=== PATIENT | female | born 1975 | race Caucasian/White ===

== ENCOUNTER 2017-02-11 09:16 | Day surgery (SDC) | payer OTHER ==
--- NOTE | ~2017-02-11 | EGD ---
EGD REPORT [facility] [address] [place] [address] NAME: TAWNYA HINKLE : [birth year] STATUS : REG [facility]#: [id number] AGE: 41 ADM/REG DATE : 02/11/17 MR#: [id number] REPORT SERV DATE: 02/11/17 DICTATED BY: SEN MACHADO DATE: 02/11/17 REPORT STATUS : Draft [facility]ANS[facility]IBED [facility]: [facility] DATE: 02/11/17 Endoscopy Center Patient Name: Tawnya Hinkle Date of : 1975 Attending MD: SEN MACHADO, Procedure Date No Time: 02/11/2017 Procedure: Upper EUS Indications: Abnormal ultrasound of the abdomen. Dilated bile duct Referring MD: TAYLOR MEYER MD, CHRISTIANO MURPHY Medicines: Monitored Anesthesia Care Complications: No immediate complications. Estimated blood loss: None. Procedure: Pre-Anesthesia Assessment: - ASA Grade Assessment: I - A normal, healthy patient. After obtaining informed consent, the endoscope was passed under direct vision. Throughout the procedure, the patient's blood pressure, pulse, and oxygen saturations were monitored continuously. The Endoscope was introduced through the mouth, and advanced to the second part of duodenum. The GIF [id number] was introduced through the mouth, and advanced to the second part of duodenum. Findings: Endoscopic Finding : The examined esophagus was endoscopically normal. The entire examined stomach was endoscopically normal. The examined duodenum was endoscopically normal. The cardia and gastric fundus were normal on retroflexion. The ampulla was normal. Endosonographic Finding : There was dilation in the common bile duct which measured up to 7 mm. Endosonographic imaging of the visualized portion of the biliary system showed no stones, no sludge, no mass, no polyp and no stricture. There was no sign of significant endosonographic abnormality in the entire pancreas. The pancreas was well visualized, no pathologic lymphadenopathy, no masses, no calcifications, the pancreatic duct was well visualized from ampulla to tail, the pancreatic duct was regular in contour. There was no sign of significant endosonographic abnormality in the ampulla. No lymphadenopathy seen. There was no sign of significant endosonographic abnormality in the examined duodenum. Endosonographic images of the stomach were unremarkable. There was no sign of significant endosonographic abnormality in the EGD REPORT [place] [id number] [facility] [place]. [address] NAME: TAWNYA HINKLE : [birth year] STATUS : REG [facility]#: [id number] AGE: 41 ADM/REG DATE : 02/11/17 MR#: [id number] REPORT SERV DATE: 02/11/17 DICTATED BY: SEN MACHADO DATE: 02/11/17 REPORT STATUS : Draft TRANSCRIBED BY: [facility] DATE: 02/11/17 esophagus. Impression: - Normal esophagus. - Normal stomach. - Normal examined duodenum. - There was dilation in the common bile duct which measured up to 7 mm. - Normal ampulla. - There was no sign of significant pathology in the entire pancreas. - There was no sign of significant pathology in the ampulla. - There was no sign of significant pathology in the examined duodenum. - Endosonographic images of the stomach were unremarkable. - There was no sign of significant pathology in the esophagus. Recommendation: - Return to previous diet. - Continue present medications. - Return to referring physician. Procedure Code(s): --- Professional --- 47121, Esophagogastroduodenoscopy, flexible, transoral; with endoscopic ultrasound examination, including the esophagus, stomach, and either the duodenum or a surgically altered stomach where the jejunum is examined distal to the anastomosis Diagnosis Code(s): --- Professional --- K83.8, Other specified diseases of biliary tract R93.5, Abnormal findings on diagnostic imaging of other abdominal regions, including retroperitoneum CPT copyright 2013 [employer]. All rights reserved. The codes documented in this report are preliminary and upon court attendant review may be revised to meet current compliance requirements. SEN MACHADO, 02/11/2017 11:07 AM Number of Addenda: 0 Note Initiated On: 02/11/2017 10:46 AM EGD REPORT [facility] [address] [address] NAME: TAWNYA HINKLE : [birth year] STATUS : REG [facility] PAT#: [id number] AGE: 41 ADM/REG DATE : 02/11/17 MR#: [id number] REPORT SERV DATE: 02/11/17 DICTATED BY: SEN MACHADO DATE: 02/11/17 REPORT STATUS : Draft TRANSCRIBED BY: [facility] DATE: 02/11/17 Scope Withdrawal Time 0 hours 0 minutes 0 seconds [address] [address]
[~2017-02-11 09:16] MED LIST: ALIGN4 MG PO; IBU400 PO
== END 2017-02-11 23:59 | disposition home or self-care (01) ==
LOC: DMU 09:16
PROVIDERS: Internal Medicine Gastroenterology
PROC: BD47ZZZ Ultrasonography of Gastrointestinal Tract (ICD-10-PCS; 2017-02-11)
PROC: 0DJ08ZZ Inspection of Upper Intestinal Tract, Via Natural or Artificial Opening Endoscopic (ICD-10-PCS; principal; 2017-02-11 10:30)
DX: K83.8 Other specified diseases of biliary tract (principal); G43.909 Migraine, unspecified, not intractable, without status migrainosus; K58.9 Irritable bowel syndrome, unspecified; K21.9 Gastro-esophageal reflux disease without esophagitis; Z88.1 Allergy status to other antibiotic agents; Z88.8 Allergy status to other drugs, medicaments and biological substances; Z79.1 Long term (current) use of non-steroidal anti-inflammatories (NSAID); Z90.49 Acquired absence of other specified parts of digestive tract; Z98.890 Other specified postprocedural states
CPT/HCPCS: 84703; C1725